=== PATIENT | female | born 1995 | race African-American/Black ===

== ENCOUNTER 2017-08-23 06:41 | Emergency (ER) | payer MEDICAID ==
[~2017-08-23] VITALS: Ht 160 cm; Wt 68.0 kg
[2017-08-23 06:46] VITALS: BP 120/72
[2017-08-23] MEDS ORDERED: ACETAMINOPHEN 325MG TABLET ONE (06:55)
== END 2017-08-23 09:56 | disposition home or self-care (01) ==
LOC: ER 08:34
DX: J06.9 Acute upper respiratory infection, unspecified (principal); S00.83XA Contusion of other part of head, initial encounter; S00.11XA Contusion of right eyelid and periocular area, initial encounter; Y04.0XXA Assault by unarmed brawl or fight, initial encounter
CPT/HCPCS: 70450; 70486; 72125; 81025; 87804; 99285; Z7610